=== PATIENT | male | born 1945 | race Caucasian/White ===

== ENCOUNTER 2020-07-02 12:51 | Emergency (ER) | payer MEDICARE, OTHER ==
[~2020-07-02 12:51] MED LIST: ALLOPURINOL100 MG PO; ASPIR 8181 MG PO; COZAAR100 MG PO; EPIDIOLEX100 MG/1 M PO; GLUCOTROL5 MG PO; LASIX20 MG PO; LIPITOR 10MG TA10 MG PO; MAG-OXIDE 400M400 MG PO; ONE DAILY MEN'1 EACH PO; PROBIOTIC1 EAC1 PO; ZINC50 M1 PO
== END 2020-07-02 16:25 | disposition home or self-care (01) ==
LOC: FER 12:51
DX: S51.812A Laceration without foreign body of left forearm, initial encounter (principal); S20.222A Contusion of left back wall of thorax, initial encounter; R51.9 Headache, unspecified; M54.5 Low back pain; I12.0 Hypertensive chronic kidney disease with stage 5 chronic kidney disease or end stage renal disease; E11.22 Type 2 diabetes mellitus with diabetic chronic kidney disease; N18.6 End stage renal disease; E78.5 Hyperlipidemia, unspecified; M10.9 Gout, unspecified; Z79.899 Other long term (current) drug therapy; Z79.84 Long term (current) use of oral hypoglycemic drugs; Z79.82 Long term (current) use of aspirin; Z99.2 Dependence on renal dialysis; W19.XXXA Unspecified fall, initial encounter; Y92.009 Unspecified place in unspecified non-institutional (private) residence as the place of occurrence of the external cause
CPT/HCPCS: 70450; 71101; 72131

== ENCOUNTER 2021-01-10 12:52 | Emergency (ER) | payer MEDICARE, OTHER ==
[2021-01-10 16:06] LABS: BASOPHIL 0.3 % (0-2); EOSINOPHIL 0.3 % (0-7); HCT 38.3 % (42.0-52.0); LYMPHOCYTE 13.7 % (15-48); MCH 29.5 pg (25.0-31.0); MCHC 33.9 g/dL (32.0-36.0); MCV 86.8 fL (78.0-100.0); MONOCYTE 8.2 % (0-12); MPV 10.5 fL (6.0-9.5); NRBC 0; PLT 117 K/uL (150-400); RBC 4.41 M/uL (4.70-6.00); RDW 13.7 % (11.5-14.0); WBC 3.7 K/uL (4.0-10.5)
[2021-01-10 16:20] LABS: ALBUMIN 3.1 g/dL (3.4-5.0); BILIRUBIN - TOTAL 0.9 mg/dL (0.2-1.0); CREATININE 1.76 mg/dL (0.67-1.17); GLOBULIN (CALCULATION) 4.3 g/dL; POTASSIUM 4.4 mmol/L (3.5-5.1); TOTAL PROTEIN 7.4 g/dL (6.4-8.2)
== END 2021-01-10 18:57 | disposition home or self-care (01) ==
LOC: FER 12:52
PROVIDERS: Internal Medicine
DX: U07.1 COVID-19 (principal); E11.22 Type 2 diabetes mellitus with diabetic chronic kidney disease; N18.9 Chronic kidney disease, unspecified; N17.9 Acute kidney failure, unspecified; R91.8 Other nonspecific abnormal finding of lung field; I50.9 Heart failure, unspecified; Z99.2 Dependence on renal dialysis; Z23 Encounter for immunization
CPT/HCPCS: 36415; 71045; 80053; 84145; 84484; 85025; M0243; Q0244; U0002